=== PATIENT | male | born 1940 | race Caucasian/White ===

== ENCOUNTER 2016-10-16 09:52 | Emergency (ER) | payer MEDICARE, BC ==
[2016-10-16] MEDS ORDERED: Ketorolac INJ* 60 MG/2 ML VIAL IM ONE (10:57)
[2016-10-16] MEDS ORDERED: HYDROcodone/ACETAMIN 5-325 MG* 1 TAB PO ONE (10:57)
--- NOTE | 2016-10-16 11:45 | RAD ---
INDICATION: Low back pain. COMPARISON: There are no prior studies available for comparison. TECHNIQUE: 3 views of the lumbar spine were obtained including lateral, AP and a coned-down lateral view of the lumbar sacral junction. FINDINGS: The vertebra are in normal alignment. No fracture is seen. There is mild to moderate disc space narrowing and mild endplate spurring at all lumbar levels consistent with mild to moderate diffuse degenerative disc disease. IMPRESSION: MILD TO MODERATE DIFFUSE DEGENERATIVE DISC DISEASE.
--- NOTE | 2016-10-16 11:46 | RAD ---
INDICATION: Back pain. COMPARISON: There are no prior studies available for comparison. TECHNIQUE: AP and lateral films of the dorsal spine were obtained. FINDINGS: There is a minimal scoliosis convex toward the right side. The vertebra are otherwise in normal alignment. No fracture is seen. There is mild to moderate diffuse degenerative disc disease throughout the mid and lower dorsal spine. IMPRESSION: MILD TO MODERATE DEGENERATIVE DISC DISEASE.
[2016-10-16 12:36] VITALS: BP 132/75
--- NOTE | 2016-10-16 12:38 | ED ---
Myron Redd Matthew, scribed for Marco Cartwright MD on 10/16/16 at 1058 . Back Pain - HPI Summary HPI Summary: A 76 y/o male presents to the ED with intermittent left lower back pain since . The patient slipped off of the first step of stool and fell into his refrigerator. The pain is rated 5/10 in severity and hasn't improved since the incident. Nothing has improved or worsened the pain. He's used Tylenol at home for pain. - History of Current Complaint Chief Complaint: EDBackInjuryPain Stated Complaint: FALL / LT SIDE /BACK PAIN Time Seen by Provider: 10/16/16 10:42 Hx Obtained From: Patient Onset/Duration: Sudden Onset, Lasting Days, Still Present Onset/Duration: Started Days Ago, Traumatic, Still Present Timing: Constant Back Pain Location: Is Discrete @ - left lower back Severity Initially: Moderate Severity Currently: Moderate Pain Intensity: 5 Pain Scale Used: 0-10 Numeric Aggravating Symptom(s): Nothing Alleviating Symptom(s): Nothing Associated Signs And Symptoms: Positive: Negative - Allergies/Home Medications Allergies/Adverse Reactions: Allergies Allergy/AdvReac Type Severity Reaction Status Date / Time No Known Allergies Allergy Verified 04/22/13 08:01 PMH/Surg Hx/FS Hx/Imm Hx Endocrine/Hematology History: Denies: Hx Diabetes, Hx Thyroid Disease Cardiovascular History: Denies: Hx Hypertension Respiratory History: Denies: Hx Asthma, Hx Chronic Obstructive Pulmonary Disease (COPD) GI History: Denies: Hx Ulcer Infectious Disease History: No Infectious Disease History: Denies: Hx Hepatitis, Hx Human Immunodeficiency Virus (HIV), Traveled Outside the [place] in Last 30 Days - Family History Known Family History: Positive: Unknown - PT is a poor historian - Social History Alcohol Use: None Substance Use Type: Reports: None Smoking Status (MU): Never Smoked Tobacco Review of Systems Constitutional: Negative Eyes: Negative ENT: Negative Cardiovascular: Negative Respiratory: Negative Negative: Shortness Of Breath Gastrointestinal: Negative Negative: Abdominal Pain, Vomiting, Diarrhea, Nausea Genitourinary: Negative Positive: Myalgia - left lower back pain Skin: Negative Neurological: Negative Psychological: Normal All Other Systems Reviewed And Are Negative: Yes Physical Exam - Summary Physical Exam Summary: VITAL SIGNS: Reviewed. GENERAL: Patient is a well developed and nourished male who is lying comfortable in the stretcher. Patient is not in any acute respiratory distress. HEAD AND FACE: No signs of trauma. EYES: PERRLA, EOMI x 2. EARS: Hearing grossly intact. Ear canals and tympanic membranes are WNL MOUTH: Oropharynx within normal limits. NECK: Supple, trachea is midline, no adenopathy, no JVD. CHEST: Symmetric, no tenderness at palpation LUNGS: Clear to auscultation bilaterally. No wheezing or crackles. CVS: RRR, S1 and S2 present, no murmurs or gallops appreciated. ABDOMEN: Soft, NT. No signs of distention. Positive BS. No rebound no guarding, and no masses palpated. EXTREMITIES: FROM in all major joints, no edema, no cyanosis or clubbing. NEURO: Alert and oriented x 3. No acute neurological deficits. Speech is normal and follows commands. SKIN: Dry and warm Back: There is no ecchymosis, no deformity, positive paraspinal muscle tenderness in the left lumbar spine. No vertebral tenderness. No saddle anesthesia. Refuses rectal exam. Straight test is negative. Triage Information Reviewed: Yes Vital Signs On Initial Exam: Initial Vitals Temp Pulse Resp BP Pulse Ox 97.2 F 77 18 142/87 100 10/16/16 09:54 10/16/16 09:54 10/16/16 09:54 10/16/16 09:54 10/16/16 09:54 Vital Signs Reviewed: Yes - [place] Coma Scale Coma Scale Total: 15 Diagnostics - Vital Signs Vital Signs Temp Pulse Resp BP Pulse Ox 10/16/16 09:54 97.2 F 77 18 142/87 100 - Laboratory Lab Statement: Any lab studies that have been ordered have been reviewed, and results considered in the medical decision making process. - Radiology L-Spine Xray Interpretation: No Acute Changes - IMPRESSION: MILD TO MODERATE DIFFUSE DEGENERATIVE DISC DISEASE. Radiology Interpretation Completed By: Radiologist T-Spine Xray Interpretation: No Acute Changes - IMPRESSION: MILD TO MODERATE DEGENERATIVE DISC DISEASE. Radiology Interpretation Completed By: Radiologist Back Pain Course/Dx - Course Assessment/Plan: A 76 y/o male presents to the ED with intermittent left lower back pain since 10/12/16. The patient slipped off of the first step of stool and fell into his refrigerator. The pain is rated 5/10 in severity and hasn't improved since the incident. Nothing has improved or worsened the pain. He's used Tylenol at home for pain. XR T-Spine showed mild to moderate degenerative disc disease and XR of L-Spine also showed mild to moderate DDD. In the ED course, the patient was given Toradol on [place] and the patients symptoms improved. Hes ambulatory with minimal discomfort. I believe that the symptoms are secondary to the trauma of the lumbar spine. Therefor the patient will be discharged home with a prescription for naproxen and [place]. The patient was instructed to return to the ED if symptoms worsen. I did not suspect AAA since the pain started after the trauma and on physical exam there was no pulsating mass in the abdomen. - Diagnoses Differential Diagnosis/HQI/PQRI: Positive: Fracture, Herniated Disc, Osteoporosis, Strain, Sprain Provider Diagnoses: Lower back pain, Lumbar back sprain Discharge - Discharge Plan Condition: Stable Disposition: HOME Prescriptions: HYDROcodone/ACETAMIN 5-325 MG* [[place] 5-325 TAB*] 1 tab PO Q8H PRN #10 tab MDD max 4 tabs / day PRN Reason: Pain Naproxen TAB* [Naprosyn TAB*] 375 mg PO BID PRN #20 tab PRN Reason: Pain Patient Education Materials: Hydrocodone/Acetaminophen (By mouth), Naproxen ( By mouth), Low Back Strain (ED), Back Pain (ED) Referrals: Marco Eden MD [Primary Care Provider] - 4 Days Additional Instructions: Please follow-up with your primary care physician in 4 days. Return to the ED if you symptoms worsen. The documentation as recorded by the Myron boone Matthew accurately reflects the service I personally performed and the decisions made by me, Marco Cartwright MD.
== END 2016-10-16 12:34 | disposition home or self-care (01) ==
LOC: ED 09:52
DX: M54.5 Low back pain (principal); S33.5XXA Sprain of ligaments of lumbar spine, initial encounter; W19.XXXA Unspecified fall, initial encounter; Y93.9 Activity, unspecified; Y92.9 Unspecified place or not applicable; Y99.8 Other external cause status
CPT/HCPCS: 72070; 72100; 96372; 99282; J1885

== ENCOUNTER 2019-02-18 08:09 | Emergency (ER) | payer MEDICARE, OTHER ==
--- OUTSIDE RECORDS SUMMARY | 2019-02-18 08:16 | XMS REPORT | Continuity of Care Document ---
:1940 External Reference #:[id number] Author Name Isabelle Moreira Care Team Providers Name Role Phone Marco Eden III, MD Primary Care Physician Unavailable Payers Date Identification Numbers Payment Provider Subscriber Policy Number: [id number] Medicare Marcello V Eliza PayID: [id number] [address] [place] [address] Policy Number: [id number] Facets Marcello V Eliza PayID: [id number] [address] [address] [place] [address] Expires: 2018 Policy Number: [id number] Medicare Marcello V Eliza PayID: [id number] [address] [place] [address] Problems Active Problems Provider Date Gout Myriam Lopez, N.P. Onset: 11/02/2013 Benign localized hyperplasia of prostate Myriam Lopez N.P. Onset: 2013 Benign prostatic hypertrophy without outflow Marco Eden M.D. Onset: obstruction Pure hypercholesterolemia Myriam Lopez, N.P. 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 Tablets Naproxen 1 tablet with 60tabs Israel Reddy MD 02/23/2017 500mg Tablets food by mouth twice a day as needed Simvastatin Take One Tablet 90tabs E78.0 Marco Eden, 12/08/2013 20mg By Mouth Every M.D. Tablets Evening Tamsulosin HCL 1 by mouth every 90caps Unknown 0.4mg day Capsules Finasteride 1 by mouth every 30tabs Unknown 5mg Tablets day History Medications Colcrys 2 by mouth with 6tabs M10.9 Marco Eden, 01/04/2017 - 0.6mg Tablets acute gout M.D. 02/02/2019 flare, then 1 tab 1 hour later Naproxen 1 tab by mouth 50tabs Shayne Reyez, 03/09/2014 - 250mg q12 hours prn 10/21/2016 Tablets for gout Naproxen 1 tab by mouth 50tabs Unknown - 250mg q12 hours prn 11/10/2013 Tablets Antibiotic For Hand Unknown - Laceration 11/19/2013 Naproxen Marco Cartwright MD - 375mg 09/17/2017 Tablets Hydrocodone-Acetamin Marco Cartwright MD - ophen 09/17/2017 5-325mg Tablets Immunizations CPT Code Status Date Vaccine Lot # [id number] Given 05/21/2018 Fluzone High Dose 05789 Given 06/04/2017 Influenza Virus Vaccine, Quadrivalent, Split, Preservative Free [id number] Given 06/12/2016 Fluzone High Dose 96664 Given 06/05/2015 Fluzone High Dose 76920 Given 12/10/2014 Pneumococcal Conjugate Vaccine 13 Valent For [id number] Intramuscular Use 01083 Given 05/21/2014 Fluzone High Dose 94886 Given 12/08/2013 Zoster (Zostavax) [id number] 17200 Given 10/14/2013 Tdap - Tetanus/Diptheria/Acellular Pertussis 89262 Given 04/21/2013 Flu Vaccine Split Virus Preservative Free For Indiv [id number] Older 46214 Given 06/16/2009 Pneumonia Vaccine Vital Signs Date Vital Result Comment 02/02/2019 9:20am Height 67.50 inches 5'7.50" Weight 179.00 lb Heart Rate 79 /min BP Systolic Sitting 157 mmHg BP Diastolic Sitting 101 mmHg BMI (Body Mass Index) 27.6 kg/m2 08/01/2018 8:51am Height 67.50 inches 5'7.50" Weight 186.00 lb BP Systolic 140 mmHg BP Diastolic 80 mmHg Respiratory Rate 16 /min Body Temperature 95.2 F Pain Level 9 BMI (Body Mass Index) 28.7 kg/m2 12/22/2017 9:28am Height 67.3 inches 5'7.30" Weight 186.00 lb Heart Rate 74 /min BP Systolic Sitting 148 mmHg BP Diastolic Sitting 90 mmHg O2 % BldC Oximetry 97 % BMI (Body Mass Index) 28.9 kg/m2 09/20/2017 11:24am Weight 189.00 lb Heart Rate 93 /min BP Systolic Sitting 135 mmHg BP Diastolic Sitting 95 mmHg Body Temperature 98.5 F O2 % BldC Oximetry 98 % 01/04/2017 10:20am Weight 191.00 lb Heart Rate 72 /min BP Systolic Sitting 128 mmHg BP Diastolic Sitting 84 mmHg Respiratory Rate 14 /min O2 % BldC Oximetry 96 % 12/17/2016 11:17am Height 69 inches 5'9" Weight 188.12 lb Heart Rate 72 /min BP Systolic 140 mmHg BP Diastolic 90 mmHg Body Temperature 96.8 F O2 % BldC Oximetry 98 % BMI (Body Mass Index) 27.8 kg/m2 10/21/2016 1:35pm Weight 196.25 lb Heart Rate 73 /min BP Systolic Sitting 128 mmHg BP Diastolic Sitting 72 mmHg Body Temperature 96.9 F O2 % BldC Oximetry 98 % 12/17/2015 10:46am Height 67.25 inches 5'7.25" Weight 194.00 lb Heart Rate 81 /min BP Systolic Sitting 129 mmHg BP Diastolic Sitting 88 mmHg Body Temperature 96.6 F BMI (Body Mass Index) 30.2 kg/m2 02/07/2015 1:36pm Weight 192.00 lb Heart Rate 74 /min BP Systolic Sitting 124 mmHg BP Diastolic Sitting 82 mmHg O2 % BldC Oximetry 96 % 01/02/2015 2:49pm Weight 198.50 lb Heart Rate 72 /min BP Systolic Sitting 148 mmHg 142/100 repeat BP Diastolic Sitting 106 mmHg 142/100 repeat Body Temperature 97.0 F O2 % BldC Oximetry 99 % 12/10/2014 9:44am Height 67.75 inches 5'7.75" Weight 199.25 lb Heart Rate 76 /min BP Systolic Sitting 156 mmHg BP Diastolic Sitting 96 mmHg Body Temperature 97.2 F O2 % BldC Oximetry 99 % BMI (Body Mass Index) 30.5 kg/m2 03/09/2014 9:34am Weight 200.25 lb Heart Rate 74 /min BP Systolic Sitting 134 mmHg BP Diastolic Sitting 82 mmHg Body Temperature 96.5 F 12/08/2013 10:02am Height 67.75 inches 5'7.75" Weight 199.50 lb Heart Rate 68 /min BP Systolic Sitting 138 mmHg BP Diastolic Sitting 92 mmHg BMI (Body Mass Index) 30.6 kg/m2 11/20/2013 11:05am Height 69 inches 5'9" Weight 199.00 lb Heart Rate 84 /min BP Systolic 133 mmHg BP Diastolic 87 mmHg BMI (Body Mass Index) 29.4 kg/m2 11/10/2013 10:12am Height 69 inches 5'9" Weight 199.00 lb Heart Rate 77 /min BP Systolic 138 mmHg BP Diastolic 87 mmHg Body Temperature 97.6 F BMI (Body Mass Index) 29.4 kg/m2 11/02/2013 1:10pm Height 68 inches 5'8" Weight 202.75 lb Heart Rate 84 /min BP Systolic Sitting 138 mmHg BP Diastolic Sitting 84 mmHg Body Temperature 97.9 F BMI (Body Mass Index) 30.8 kg/m2 Results Test Date Facility Test Result H/L Range Note Lipid Profile 01/24/2019 [facility] Triglycerides 90 mg/dL 1 (Trig/Chol/HDL) [address] [place] [address] [phone] Cholesterol 185 mg/dL 2 HDL Cholesterol 84.4 mg/dL 3 LDL Cholesterol 83 mg/dL 4 Comp Metabolic Panel 01/24/2019 [facility] Sodium 141 mmol/L N 135-145 [address] [place] [address] [phone] Potassium 4.2 mmol/L N 3.5-5.0 Chloride 106 mmol/L N 101-111 Co2 Carbon Dioxide 27 mmol/L N 22-32 Anion Gap 8 mmol/L N 2-11 Glucose 83 mg/dL N 70-100 Blood Urea Nitrogen 21 mg/dL N 6-24 Creatinine 1.25 mg/dL High 0.67-1.17 BUN/Creatinine Ratio 16.8 N 8-20 Calcium 9.5 mg/dL N 8.6-10.3 Total Protein 6.5 g/dL N 6.4-8.9 Albumin 4.0 g/dL N 3.2-5.2 Globulin 2.5 g/dL N 2-4 Albumin/Globulin Ratio 1.6 N 1-3 Total Bilirubin 0.60 mg/dL N 0.2-1.0 Alkaline Phosphatase 70 U/L N 34-104 Alt 11 U/L N 7-52 Ast 16 U/L N 13-39 Egfr Non- 56.2 >60 Egfr 67.9 >60 5 Laboratory test 12/14/2018 [facility] PSA Diagnostic 2.721 ng/ mL 0-4.0 6 finding [address] [place] [address] [phone] Laboratory test 06/22/2018 [facility] PSA Screening 1.719 ng/mL 0-4.0 7 finding [address] [place] [address] [phone] Lipid Profile 12/15/2017 [facility] Triglycerides 79 mg/dL 8 (Trig/Chol/HDL) [address] [place] [address] [phone] Cholesterol 166 mg/dL 9 HDL Cholesterol 72.5 mg/dL 10 LDL Cholesterol 78 mg/dL 11 CBC Auto Diff 12/15/2017 [facility] White Blood 5.1 10^3/uL N 3.5-10.[address] [place] [address] [phone] Red Blood Count 5.08 10^6/uL N 4.0-5.4 Hemoglobin 14.1 g/dL N 14.0-18.0 Hematocrit 42 % N 42-52 Mean Corpuscular Volume 82 fL N 80-94 Mean Corpuscular Hemoglobin 28 pg N 27-31 Mean Corpuscular HGB Conc 34 g/dL N 31-36 Red Cell Distribution Width 14 % N 10.5-15 Platelet Count 241 10^3/uL N 150-450 Mean Platelet Volume 8.2 um3 N 7.4-10.4 Abs Neutrophils 2.6 10^3/uL N 1.5-7.7 Abs Lymphocytes 1.7 10^3/uL N 1.0-4.8 Abs Monocytes 0.4 10^3/uL N 0-0.8 Abs Eosinophils 0.3 10^3/uL N 0-0.6 Abs Basophils 0.1 10^3/uL N 0-0.2 Abs Nucleated RBC 0 10^3/uL Granulocyte % 51.5 % N 38-83 Lymphocyte % 33.2 % N 25-47 Monocyte % 7.8 % High 0-7 Eosinophil % 6.2 % High 0-6 Basophil % 1.3 % N 0-2 Nucleated Red Blood Cells % 0.2 Laboratory test finding 12/15/2017 [facility] Alt 13 U/L N 7- 52 12 [address] [place] [address] [phone] Ast (Sgot) 18 U/L N 13-39 13 Basic Metabolic Panel 12/15/2017 [facility] Sodium 142 mmol/L N 139-145 [address] [place] [address] [phone] Potassium 4.4 mmol/L N 3.5-5.0 Chloride 111 mmol/L N 101-111 Co2 Carbon Dioxide 24 mmol/L N 22-32 Anion Gap 7 mmol/L N 2-11 Glucose 85 mg/dL N 70-100 Blood Urea Nitrogen 22 mg/dL N 6-24 Creatinine 1.14 mg/dL N 0.67-1.17 BUN/Creatinine Ratio 19.3 N 8-20 Calcium 9.0 mg/dL N 8.6-10.3 Egfr Non- 62.6 >60 Egfr 80.5 >60 14 Laboratory test 06/30/2017 [facility] PSA Screening 1.298 ng/mL 0-4.0 15 finding [address] [place] [address] [phone] Laboratory test 01/06/2017 [facility] PSA Screening 2.955 ng/mL N 0-4.0 16 finding [address] [place] [address] [phone] Basic Metabolic 01/04/2017 [facility] Sodium 140 mmol/L N 133- 145 Panel [address] [place] [address] [phone] Potassium 4.4 mmol/L N 3.5-5.0 Chloride 107 mmol/L N 101-111 Co2 Carbon Dioxide 26 mmol/L N 22-32 Anion Gap 7 mmol/L N 2-11 Glucose 82 mg/dL N 70-100 Blood Urea Nitrogen 16 mg/dL N 6-24 Creatinine 0.98 mg/dL N 0.67-1.17 BUN/Creatinine Ratio 16.3 N 8-20 Calcium 9.0 mg/dL N 8.6-10.3 Egfr Non- 74.8 N >60 Egfr 96.2 N >60 17 Laboratory test 01/04/2017 [facility] Uric Acid 6.1 mg/dL N 4.4-7.6 finding [address] [place] [address] [phone] Lipid Profile 12/02/2016 [facility] Triglycerides 60 mg/dL N 18 (Trig/Chol/HDL) [address] [place] [address] [phone] Cholesterol 157 mg/dL N 19 HDL Cholesterol 70.3 mg/dL N 20 LDL Cholesterol 75 mg/dL N 21 CBC Auto Diff 12/02/2016 [facility] White Blood 5.4 10^3/uL N 3.5-10.8 [address] [facility] [place] [address] [phone] Red Blood Count 4.96 10^6/uL N 4.0-5.4 Hemoglobin 14.2 g/dL N 14.0-18.0 Hematocrit 42 % N 42-52 Mean Corpuscular Volume 84 fL N 80-94 Mean Corpuscular Hemoglobin 29 pg N 27-31 Mean Corpuscular HGB Conc 34 g/dL N 31-36 Red Cell Distribution Width 13 % N 10.5-15 Platelet Count 226 10^3/uL N 150-450 Mean Platelet Volume 8 um3 N 7.4-10.4 Abs Neutrophils 2.8 10^3/uL N 1.5-7.7 Abs Lymphocytes 1.7 10^3/uL N 1.0-4.8 Abs Monocytes 0.4 10^3/uL N 0-0.8 Abs Eosinophils 0.4 10^3/uL N 0-0.6 Abs Basophils 0.1 10^3/uL N 0-0.2 Abs Nucleated RBC 0 10^3/uL N Granulocyte % 51.3 % N 38-83 Lymphocyte % 32.4 % N 25-47 Monocyte % 7.1 % N 1-9 Eosinophil % 7.7 % High 0-6 Basophil % 1.5 % N 0-2 Nucleated Red Blood Cells % 0 N Laboratory test finding 12/02/2016 [facility] Alt 10 U/L N 7- 52 22 [address] [place] [address] [phone] Ast (Sgot) 16 U/L N 13-39 23 Basic Metabolic Panel 12/02/2016 [facility] Sodium 139 mmol/L N 133-145 [address] [place] [address] [phone] Potassium 4.2 mmol/L N 3.5-5.0 Chloride 107 mmol/L N 101-111 Co2 Carbon Dioxide 27 mmol/L N 22-32 Anion Gap 5 mmol/L N 2-11 Glucose 92 mg/dL N 70-100 Blood Urea Nitrogen 25 mg/dL High 6-24 Creatinine 1.25 mg/dL High 0.67-1.17 BUN/Creatinine Ratio 20.0 N 8-20 Calcium 9.1 mg/dL N 8.6-10.3 Egfr Non- 56.5 N >60 Egfr 72.6 N >60 24 Lipid Profile 12/06/2015 [facility] Triglycerides 74 mg/dL N 25, 26 (Trig/Chol/HDL) [address] [place] [address] [phone] Cholesterol 166 mg/dL N 27 HDL Cholesterol 67.4 mg/dL N 28 LDL Cholesterol 84 mg/dL N 29 Comp Metabolic Panel 12/06/2015 [facility] Sodium 138 mmol/L N 133-145 [address] [place] [address] [phone] Potassium 4.1 mmol/L N 3.5-5.0 Chloride 108 mmol/L N 101-111 Co2 Carbon Dioxide 25 mmol/L N 22-32 Anion Gap 5 mmol/L N 2-11 Glucose 92 mg/dL N 70-100 Blood Urea Nitrogen 17 mg/dL N 6-24 Creatinine 1.09 mg/dL N 0.67-1.17 BUN/Creatinine Ratio 15.6 N 8-20 Calcium 8.9 mg/dL N 8.6-10.3 Total Protein 6.3 g/dL Low 6.4-8.9 Albumin 4.0 g/dL N 3.2-5.2 Globulin 2.3 g/dL N 2-4 Albumin/Globulin Ratio 1.7 N 1-3 Total Bilirubin 0.50 mg/dL N 0.2-1.0 Alkaline Phosphatase 67 U/L N 34-104 Alt 9 U/L N 7-52 Ast 16 U/L N 13-39 Egfr Non- 66.3 N >60 Egfr 85.3 N >60 30 Laboratory test 06/20/2015 [facility] PSA Diagnostic 1.309 N 0 -4.0 [address] ng/[place] [address] [phone] Comp Metabolic 12/03/2014 [facility] Sodium 133 mmol/L N 133- 145 [address] [place] [address] [phone] Potassium 4.2 mmol/L N 3.5-5.0 Chloride 105 mmol/L N 101-111 Co2 Carbon Dioxide 25 mmol/L N 22-32 Anion Gap 3 mmol/L N 2-11 Glucose 84 mg/dL N 70-100 Blood Urea Nitrogen 15 mg/dL N 6-24 Creatinine 1.13 mg/dL N 0.67-1.17 BUN/Creatinine Ratio 13.3 N 8-20 Calcium 9.0 mg/dL N 8.6-10.3 Total Protein 6.3 g/dL Low 6.4-8.9 Albumin 4.0 g/dL N 3.2-5.2 Globulin 2.3 g/dL N 2-4 Albumin/Globulin Ratio 1.7 N 1-3 Total Bilirubin 0.50 mg/dL N 0.2-1.0 Alkaline Phosphatase 65 U/L N 34-104 Alt 14 U/L N 7-52 Ast 18 U/L N 13-39 Egfr Non- 63.8 N >60 Egfr 82.0 N >60 33 Lipid Profile 12/03/2014 [facility] Triglycerides 63 mg/dL N 34 (Trig/Chol/HDL) [address] [place] [address] [phone] Cholesterol 165 mg/dL N 35 HDL Cholesterol 70.2 mg/dL N 36 LDL Cholesterol 82 mg/dL N 37 Laboratory test 06/07/2014 [facility] PSA Diagnostic 2.279 N 0 -4.0 [address] ng/[place] [address] [phone] Basic Metabolic 04/02/2014 [facility] Sodium 141 mmol/L N 133- [address] [place] [address] [phone] Potassium 4.3 mmol/L N 3.7-5.6 Chloride 108 mmol/L N 101-111 Co2 Carbon Dioxide 27 mmol/L N 22-32 Anion Gap 6 mmol/L N 2-11 Glucose 89 mg/dL N 70-100 Blood Urea Nitrogen 18 mg/dL N 6-24 Creatinine 1.19 mg/dL High 0.67-1.17 BUN/Creatinine Ratio 15.1 N 8-20 Calcium 9.5 mg/dL N 8.6-10.3 Egfr Non- 60.3 N >60 Egfr 77.5 N >60 39 Laboratory test 03/01/2014 [facility] Creatine Kinase 45 U/L N 10-[address] [place] [address] [phone] Comp Metabolic 03/01/2014 [facility] Sodium 141 N 133-[address] mmol/[place] [address] [phone] Potassium 4.5 mmol/L N 3.7-5.6 Chloride 108 mmol/L N 101-111 Co2 Carbon Dioxide 28 mmol/L N 22-32 Anion Gap 5 mmol/L N 2-11 Glucose 84 mg/dL N 70-100 Blood Urea Nitrogen 23 mg/dL N 6-24 Creatinine 1.23 mg/dL High 0.67-1.17 BUN/Creatinine Ratio 18.7 N 8-20 Calcium 9.1 mg/dL N 8.6-10.3 Total Protein 6.5 g/dL N 6.4-8.9 Albumin 3.9 g/dL N 3.2-5.2 Globulin 2.6 g/dL N 2-4 Albumin/Globulin Ratio 1.5 N 1-3 Total Bilirubin 0.40 mg/dL N 0.2-1.0 Alkaline Phosphatase 66 U/L N 34-104 Alt 14 U/L N 7-52 Ast 18 U/L N 13-39 Egfr Non- 58.0 N >60 Egfr 74.6 N >60 40 Lipid Profile 03/01/2014 [facility] Triglycerides 72 mg/dL N 41 (Trig/Chol/HDL) [address] [place] [address] [phone] Cholesterol 171 mg/dL N 42 HDL Cholesterol 63.6 mg/dL N 43 LDL Cholesterol 93 mg/dL N 44 CBC Auto Diff 02/02/2014 White Blood Count 5.1 10^3/uL N 4.8-10.8 Red Blood Count 5.16 10^6/uL N 4.0-5.4 Hemoglobin 14.7 g/dL N 14.0-18.0 Hematocrit 42 % N 42-52 Mean Corpuscular Volume 82 fL N 80-94 Mean Corpuscular Hemoglobin 29 pg N 27-31 Mean Corpuscular HGB Conc 35 g/dL N 31-36 Red Cell Distribution Width 17 % High 10.5-15 Platelet Count 232 10^3/uL N 150-450 Mean Platelet Volume 7 um3 Low 7.4-10.4 Abs Neutrophils 3.1 10^3/uL N 1.5-7.7 Abs Lymphocytes 1.4 10^3/uL N 1.0-4.8 Abs Monocytes 0.3 10^3/uL N 0-0.8 Abs Eosinophils 0.2 10^3/uL N 0-0.6 Abs Basophils 0.1 10^3/uL N 0-0.2 Abs Nucleated RBC 0 10^3/uL N Granulocyte % 59.8 % N 38-83 Lymphocyte % 27.7 % N 25-47 Monocyte % 6.0 % N 1-9 Eosinophil % 4.7 % N 0-6 Basophil % 1.8 % N 0-2 Nucleated Red Blood Cells % 0.1 N Surgical Pathology 01/02/2014 [facility] S RUN DATE: [address] <[place] [address] NOTE> [phone] Basic Metabolic 12/06/2013 [facility] Sodium 136 mmol/L N 133- [address] [place] [address] [phone] Potassium 4.5 mmol/L N 3.7-5.6 Chloride 104 mmol/L N 101-111 Co2 Carbon Dioxide 26 mmol/L N 22-32 Anion Gap 6 mmol/L N 2-11 Glucose 84 mg/dL N 70-100 Blood Urea Nitrogen 23 mg/dL N 6-24 Creatinine 1.08 mg/dL N 0.67-1.17 BUN/Creatinine Ratio 21.3 High 8-20 Calcium 9.3 mg/dL N 8.6-10.3 Egfr Non- 67.4 N >60 Egfr 86.7 N >60 46 Laboratory test 12/06/2013 [facility] PSA Diagnostic 1.342 N 0 -4.0 47 finding [address] [facility] ng/[place] [address] [phone] Laboratory test 11/06/2013 [facility] Uric Acid 7.8 mg/dL High 4.4-7.6 finding [address] [place] [address] [phone] Glucose 89 mg/dL N 70-100 Lipid Profile 11/06/2013 [facility] Triglycerides 91 mg/dL N 48 (Trig/Chol/HDL) [address] [place] [address] [phone] Cholesterol 225 mg/dL N 49 HDL Cholesterol 62.7 mg/dL N 50 LDL Cholesterol 144 mg/dL N 51 CBC With 11/06/2013 [facility] White Blood 5.8 10^3/uL N 4.8- 10.8 Manual Diff [address] [facility] [place] [address] [phone] Red Blood Count 4.89 10^6/uL N 4.0-5.4 Hemoglobin 14.2 g/dL N 14.0-18.0 Hematocrit 42 % N 42-52 Mean Corpuscular Volume 85 fL N 80-94 Mean Corpuscular Hemoglobin 29 pg N 27-31 Mean Corpuscular HGB Conc 34 g/dL N 31-36 Red Cell Distribution Width 13 % N 10.5-15 Platelet Count 295 10^3/uL N 150-450 Mean Platelet Volume 8 um3 N 7.4-10.4 Abs Neutrophils 3.4 10^3/uL N 1.5-7.7 Abs Lymphocytes 1.6 10^3/uL N 1.0-4.8 Abs Monocytes 0.4 10^3/uL N 0-0.8 Abs Eosinophils 0.3 10^3/uL N 0-0.6 Abs Basophils 0.1 10^3/uL N 0-0.2 Abs Nucleated RBC 0.01 10^3/uL N Neutrophil % 59 % N 38-83 Lymphocytes % 32 % N 25-47 Monocytes % 3 % N 0-13 Eosinophils % 6 % N 0-6 RBC Morphology Normal N Normal 1 Desirable: <150 Borderline High: 150-199 High: 200-499 Very High: >500 2 Desirable: <200 Borderline High: 200-239 High: >239 3 Low: <40 Desirable: 40-60 High: >60 4 Desirable: <100 Near Optimal: 100-129 Borderline High: 130-159 High: 160-189 Very High: >189 5 Because ethnic data is not always readily available, this report includes an eGFR for both -Americans and non- Americans. The National Kidney Disease Education Program (NKDEP) does not endorse the use of the MDRD equation for patients that are not between the ages of 18 and 70, are , have extremes of body size, muscle mass, or nutritional status, or are non- or non-. According to the National Kidney Foundation, irrespective of diagnosis, the stage of the disease is based on the level of kidney function: Stage Description GFR(mL/min/1.73 m(2)) 1 Kidney damage with normal or decreased GFR 90 2 Kidney damage with mild decrease in GFR 60-89 3 Moderate decrease in GFR 30-59 4 Severe decrease in GFR 15-29 5 Kidney failure <15 (or dialysis) 6 Serum levels of PSA measured using the [employer] DXI Hybritech immunoassay should not be interpreted as absolute evidence of the presence or absence of disease. The PSA value should be used in conjunction with other pertinent clinical diagnostic procedures. The values obtained with different assay methods or kits cannot be used interchangeably. 7 Serum levels of PSA measured using the [employer] DXI Hybritech immunoassay should not be interpreted as absolute evidence of the presence or absence of disease. The PSA value should be used in conjunction with other pertinent clinical diagnostic procedures. The values obtained with different assay methods or kits cannot be used interchangeably. 8 Desirable: <150 Borderline High: 150-199 High: 200-499 Very High: >500 9 Desirable: <200 Borderline High: 200-239 High: >239 10 Low: <40 Desirable: 40-60 High: >60 11 Desirable: <100 Near Optimal: 100-129 Borderline High: 130-159 High: 160-189 Very High: >189 12 FASTING 13 FASTING 14 Because ethnic data is not always readily available, this report includes an eGFR for both -Americans and non- Americans. The National Kidney Disease Education Program (NKDEP) does not endorse the use of the MDRD equation for patients that are not between the ages of 18 and 70, are , have extremes of body size, muscle mass, or nutritional status, or are non- or non-. According to the National Kidney Foundation, irrespective of diagnosis, the stage of the disease is based on the level of kidney function: Stage Description GFR(mL/min/1.73 m(2)) 1 Kidney damage with normal or decreased GFR 90 2 Kidney damage with mild decrease in GFR 60-89 3 Moderate decrease in GFR 30-59 4 Severe decrease in GFR 15-29 5 Kidney failure <15 (or dialysis) 15 Serum levels of PSA measured using the [employer] DXI Hybritech immunoassay should not be interpreted as absolute evidence of the presence or absence of disease. The PSA value should be used in conjunction with other pertinent clinical diagnostic procedures. The values obtained with different assay methods or kits cannot be used interchangeably. 16 Serum levels of PSA measured using the [employer] DXI Hybritech immunoassay should not be interpreted as absolute evidence of the presence or absence of disease. The PSA value should be used in conjunction with other pertinent clinical diagnostic procedures. The values obtained with different assay methods or kits cannot be used interchangeably. 17 Because ethnic data is not always readily available, this report includes an eGFR for both -Americans and non- Americans. The National Kidney Disease Education Program (NKDEP) does not endorse the use of the MDRD equation for patients that are not between the ages of 18 and 70, are , have extremes of body size, muscle mass, or nutritional status, or are non- or non-. According to the National Kidney Foundation, irrespective of diagnosis, the stage of the disease is based on the level of kidney function: Stage Description GFR(mL/min/1.73 m(2)) 1 Kidney damage with normal or decreased GFR 90 2 Kidney damage with mild decrease in GFR 60-89 3 Moderate decrease in GFR 30-59 4 Severe decrease in GFR 15-29 5 Kidney failure <15 (or dialysis) 18 Desirable <150 Borderline high 150-199 High 200-499 Very High >500 19 Desirable <200 Borderline high 200-239 High >239 20 Low <40 Desirable: 40-60 High: >60 21 Desirable: <100 mg/dL Near Optimal: 100-129 mg/dL Borderline High: 130-159 mg/dL High: 160-189 mg/dL Very High: >189 mg/dL 22 FASTING 23 FASTING 24 Because ethnic data is not always readily available, this report includes an eGFR for both -Americans and non- Americans. The National Kidney Disease Education Program (NKDEP) does not endorse the use of the MDRD equation for patients that are not between the ages of 18 and 70, are , have extremes of body size, muscle mass, or nutritional status, or are non- or non-. According to the National Kidney Foundation, irrespective of diagnosis, the stage of the disease is based on the level of kidney function: Stage Description GFR(mL/min/1.73 m(2)) 1 Kidney damage with normal or decreased GFR 90 2 Kidney damage with mild decrease in GFR 60-89 3 Moderate decrease in GFR 30-59 4 Severe decrease in GFR 15-29 5 Kidney failure <15 (or dialysis) 25 PT IS FASTING 26 Desirable <150 Borderline high 150-199 High 200-499 Very High >500 27 Desirable <200 Borderline high 200-239 High >239 28 Low <40 Desirable: 40-60 High: >60 29 Desirable: <100 mg/dL Near Optimal: 100-129 mg/dL Borderline High: 130-159 mg/dL High: 160-189 mg/dL Very High: >189 mg/dL 30 Because ethnic data is not always readily available, this report includes an eGFR for both -Americans and non- Americans. The National Kidney Disease Education Program (NKDEP) does not endorse the use of the MDRD equation for patients that are not between the ages of 18 and 70, are , have extremes of body size, muscle mass, or nutritional status, or are non- or non-. According to the National Kidney Foundation, irrespective of diagnosis, the stage of the disease is based on the level of kidney function: Stage Description GFR(mL/min/1.73 m(2)) 1 Kidney damage with normal or decreased GFR 90 2 Kidney damage with mild decrease in GFR 60-89 3 Moderate decrease in GFR 30-59 4 Severe decrease in GFR 15-29 5 Kidney failure <15 (or dialysis) 31 Serum levels of PSA measured using the [employer] DXI Hybritech immunoassay should not be interpreted as absolute evidence of the presence or absence of disease. The PSA value should be used in conjunction with other pertinent clinical diagnostic procedures. The values obtained with different assay methods or kits cannot be used interchangeably. 32 FASTING 10 HOUR 33 Because ethnic data is not always readily available, this report includes an eGFR for both -Americans and non- Americans. The National Kidney Disease Education Program (NKDEP) does not endorse the use of the MDRD equation for patients that are not between the ages of 18 and 70, are , have extremes of body size, muscle mass, or nutritional status, or are non- or non-. According to the National Kidney Foundation, irrespective of diagnosis, the stage of the disease is based on the level of kidney function: Stage Description GFR(mL/min/1.73 m(2)) 1 Kidney damage with normal or decreased GFR 90 2 Kidney damage with mild decrease in GFR 60-89 3 Moderate decrease in GFR 30-59 4 Severe decrease in GFR 15-29 5 Kidney failure <15 (or dialysis) 34 Desirable <150 Borderline high 150-199 High 200-499 Very High >500 35 Desirable <200 Borderline high 200-239 High >239 36 Low <40 Desirable: 40-60 High: >60 37 Desirable: <100 mg/dL Near Optimal: 100-129 mg/dL Borderline High: 130-159 mg/dL High: 160-189 mg/dL Very High: >189 mg/dL 38 Serum levels of PSA measured using the [employer] DXI Hybritech immunoassay should not be interpreted as absolute evidence of the presence or absence of disease. The PSA value should be used in conjunction with other pertinent clinical diagnostic procedures. The values obtained with different assay methods or kits cannot be used interchangeably. 39 Because ethnic data is not always readily available, this report includes an eGFR for both -Americans and non- Americans. The National Kidney Disease Education Program (NKDEP) does not endorse the use of the MDRD equation for patients that are not between the ages of 18 and 70, are , have extremes of body size, muscle mass, or nutritional status, or are non- or non-. According to the National Kidney Foundation, irrespective of diagnosis, the stage of the disease is based on the level of kidney function: Stage Description GFR(mL/min/1.73 m(2)) 1 Kidney damage with normal or decreased GFR 90 2 Kidney damage with mild decrease in GFR 60-89 3 Moderate decrease in GFR 30-59 4 Severe decrease in GFR 15-29 5 Kidney failure <15 (or dialysis) 40 Because ethnic data is not always readily available, this report includes an eGFR for both -Americans and non- Americans. The National Kidney Disease Education Program (NKDEP) does not endorse the use of the MDRD equation for patients that are not between the ages of 18 and 70, are , have extremes of body size, muscle mass, or nutritional status, or are non- or non-. According to the National Kidney Foundation, irrespective of diagnosis, the stage of the disease is based on the level of kidney function: Stage Description GFR(mL/min/1.73 m(2)) 1 Kidney damage with normal or decreased GFR 90 2 Kidney damage with mild decrease in GFR 60-89 3 Moderate decrease in GFR 30-59 4 Severe decrease in GFR 15-29 5 Kidney failure <15 (or dialysis) 41 Desirable <150 Borderline high 150-199 High 200-499 Very High >500 42 Desirable <200 Borderline high 200-239 High >239 43 Low <40 Desirable: 40-60 High: >60 44 Desirable <100 Near Optimal 100-129 Borderline high 130-159 High 160-189 Very High >189 45 RUN DATE: 01/04/14 [facility] LAB LIVE PAGE 1 RUN TIME: [address] [place], [place] [address] Specimen Inquiry Name: ELIZAKERENMARCELLO V : [address]: Slick Ramirez MD Acct: [id number] Unit: [id number] AGE: 73 Location: [facility] Re01/02/14 SEX: M Status: REG REF SPEC: [id number] ASHLIE: 01/02/14- SUBM DR: Slick Ramirez MD REQ: [id number] RECD: 01/02/14 STATUS: ADONAY LAZO DR: Shayne Reyez MD _ ORDERED: LEVEL IV FINAL DIAGNOSIS Colon, 40 cm., biopsy: A. Tubular adenoma. B. No high grade dysplasia or malignancy. CLINICAL HISTORY Screening colonoscopy POST-OPERATIVE DIAGNOSIS Screening colonoscopy to cecum, snare at 40 cm. GROSS DESCRIPTION The specimen is received in formalin labeled Marcello Miller, Colon Polyp at 40 cm. and consists of two, marion, irregular to polypoid, soft tissue fragments measuring 0.3 x 0.2 x 0.1 cm. and 0.5 x 0.4 x 0.3 cm. Submitted entirely, one cassette. Signed (signature on file) Renato Banegas MD 1320 END OF REPORT * ML=Testing performed at Main Lab DEPARTMENT OF PATHOLOGY, [address] [place] [address] Renato Banegas M.D. Director [facility] # [id number] 46 Because ethnic data is not always readily available, this report includes an eGFR for both -Americans and non- Americans. The National Kidney Disease Education Program (NKDEP) does not endorse the use of the MDRD equation for patients that are not between the ages of 18 and 70, are , have extremes of body size, muscle mass, or nutritional status, or are non- or non-. According to the National Kidney Foundation, irrespective of diagnosis, the stage of the disease is based on the level of kidney function: Stage Description GFR(mL/min/1.73 m(2)) 1 Kidney damage with normal or decreased GFR 90 2 Kidney damage with mild decrease in GFR 60-89 3 Moderate decrease in GFR 30-59 4 Severe decrease in GFR 15-29 5 Kidney failure <15 (or dialysis) 47 Serum levels of PSA measured using the [employer] DXI Hybritech immunoassay should not be interpreted as absolute evidence of the presence or absence of disease. The PSA value should be used in conjunction with other pertinent clinical diagnostic procedures. The values obtained with different assay methods or kits cannot be used interchangeably. 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 knee Office 01/04/2017 Arvind [facility] Jordan Keyes M10.9 Gout, Visit 10:20a Hayden Eden M.D. unspecified Office 10/21/2016 Arvind [facility] Internal Marco Keyes M54.9 Dorsalgia, Visit 2:00p Hayden Eden M.D. unspecified E78.00 Pure hypercholesterolemia, unspecified Office Visit 02/07/2015 1:40p [facility] Internal Marco Keyes 796.2 Blood Pressure Maia Eden M.D. Reading Elevated Ccmob W/O Hypertension Office Visit 01/02/2015 2:20p [facility] Jordan Keyes 796.2 Blood Pressure Maia Eden M.D. Reading Elevated Ccmob W/O Hypertension Office Visit 03/09/2014 9:40a [facility] Internal Shayne Ross 585.1 Chronic Kidney Maia Reyez, Disease Stage I Ccmob Calvin,FACP 272.0 Hypercholesterolemia Pure Office Visit 12/08/2013 10:00a [facility] Internal Myriam Lopez, V70.0 Examination Medicine - N.P. General Medical Ccmob Routine AT [facility] 272.0 Hypercholesterolemia Pure 274.9 Gout Unspec 600.20 Benign Localized Hyperplasia Prostate W/O Urinary Obstruct V04.89 Need For Prophylactic Vaccination & Inoculation Other Virus Office Visit 11/20/2013 11:00a Orthopedic Fouzia Dick, 883.0 [facility](S) W/O C.M.A. Complication Office Visit 11/10/2013 10:00a Orthopedic Fouzia Dick, 883.0 [facility] W/O C.M.A. Complication Office Visit 11/02/2013 1:00p [facility] Internal Myriam Lopez, 274.9 Gout Unspec Medicine - Ccmob N.P. V77.1 Screening Diabetes Mellitus V77.91 Screening For Lipoid Disorders V76.51 Special Screening For Malignant Neoplasms Colon 600.20 Benign Localized Hyperplasia Prostate W/O Urinary Obstruct Plan of Treatment 02/02/2019 - Marco Eden M.D.Z00.00 Encounter for general adult medical examination without abnoE78.00 Pure hypercholesterolemia, dahyimgyqzeM99.9 Gout , jxwjqysomjmJ60.0 Benign prostatic hyperplasia without lower urinary tract symL98.9 Disorder of the skin and subcutaneous tissue, gnxpikqheklZ89.93 Unspecified hearing loss, ixflnfcdhN41.1 Tinea unguiumNew Medication: Terbinafine HCL 250 mg - 1 po dailyNew Labs:Liver Function Panel, Ordered: 02/02
[2019-02-18 08:31] VITALS: BP 145/94
--- NOTE | 2019-02-18 09:15 | UC ---
Knee Pain HPI - HPI Summary HPI Summary: 2 DAYS OF PROGRESSIVELY WORSENING RIGHT KNEE PAIN AND SWELLING. PATIENT DENIES ANY ACUTE INJURY/TRAUMA HOWEVER HE HAS BEEN DOING A LOT OF CHORES AROUND THE HOUSE INCLUDING LAYING BLACKTOP SO HE HAS BEEN SPENDING A LOT OF TIME ON HIS KNEES. STATES HE WAS DIAGNOSED CLINICALLY WITH GOUT IN HIS RIGHT KNEE IN JULY 2018. HE RESPONDED WELL TO NAPROXEN TWICE DAILY. HAS NOT HAD HIS URIC ACID EVALUATED RECENTLY THAT HE IS AWARE OF. 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 - Onset/Duration: Gradual Onset, Lasting Days, Still Present Severity Initially: Moderate Severity Currently: Moderate Pain Intensity: 4 Pain Scale Used: 0-10 Numeric Character: Sharp Aggravating Factor(s): Weight Bearing Alleviating Factor(s): Rest Associated Signs And Symptoms: Positive: Swelling Able to Bear Weight: Yes - WITH PAIN - Allergies/Home Medications Allergies/Adverse Reactions: Allergies Allergy/AdvReac Type Severity Reaction Status Date / Time No Known Allergies Allergy Verified 02/18/19 08:32 Home Medications: Home Medications Acetaminophen TAB* [Tylenol TAB*] 650 mg PO Q4H PRN 02/18/19 [History Confirmed 02/18/19] Terbinafine HCl 250 mg PO DAILY 02/18/19 [History Confirmed 02/18/19] PMH/Surg Hx/FS Hx/Imm Hx - Additional Past Medical History Additional PMH: GOUT - Surgical History Surgical History: None - Family History Known Family History: Positive: Unknown - PT is a poor historian - Social History Alcohol Use: None Substance Use Type: None Smoking Status (MU): Never Smoked Tobacco Review of Systems All Other Systems Reviewed And Are Negative: Yes Constitutional: Positive: Negative Skin: Positive: Negative Respiratory: Positive: Negative Cardiovascular: Positive: Negative Gastrointestinal: Positive: Negative Musculoskeletal: Positive: Arthralgia, Decreased ROM, Edema Physical Exam Triage Information Reviewed: Yes Appearance: Well-Appearing, No Pain Distress, Well-Nourished Vital Signs: Initial Vital Signs Temp 98.8 F 02/18/19 08:27 Pulse 90 02/18/19 08:27 Resp 16 02/18/19 08:27 BP 145/94 02/18/19 08:27 Pulse Ox 98 02/18/19 08:27 Vital Signs Reviewed: Yes Eyes: Positive: Conjunctiva Clear ENT: Positive: Hearing grossly normal Neck: Positive: Supple Respiratory: Positive: No respiratory distress, No accessory muscle use Cardiovascular: Positive: Pulses Normal Abdomen Description: Positive: Soft Musculoskeletal: Positive: ROM Limited @ - RIGHT KNEE, Edema @ - RIGHT KNEE, Other: - RIGHT KNEE WARM TO TOUCH. NO JOINT LINE TENDERNESS OR TENDERNESS OVER ANY BONY PROMINENCES. MCL AND LCL INTACT TO STRESS TESTING. NEG LACHMANS. NEG DRAWERS SIGNS. NEG MCMURRAYS. NO TENDERNESS OVER PATELLAR LIGAMENT OR QUADRICEPS TENDON. DECREASED ROM (FLEXION). Neurological: Positive: Alert Psychological: Positive: Normal Response To Family, Age Appropriate Behavior Skin: Negative: Rashes Diagnostics - Radiology RIGHT KNEE XRAYS Radiology Interpretation Completed By: Radiologist Summary of Radiographic Findings: There is been interval increase in the now moderate size suprapatellar joint. effusion without acute bony abnormality. Knee Pain Course/Dx - Course Course Of Treatment: PATIENT WITH 2 DAYS OF WORSENING RIGHT KNEE PAIN AND SWELLING. STATES HE WAS DIAGNOSED CLINICALLY WITH HAVING GOUT IN THAT KNEE IN JULY 2018. LAST URIC ACID ON OUR SYSTEM WAS 6.1 IN 2017. STATES HE HAS HAD GOUTY ATTACKS IN HIS GREAT TOE IN THE PAST. IS NOT ON ANY DAILY PROPHYLACTIC MEDICATION FOR GOUT. X -RAY TODAY SHOWS AN EFFUSION AND SOME CALCIFICATIONS. HE HAS RESPONDED WELL THE PAST TO NAPROXEN TWICE DAILY AND STATES HE HAS THIS MEDICATION AT HOME ALREADY. HAVE ADVISED HIM TO TAKE THIS MEDICINE FOR THE NEXT 5-7 DAYS. STAY WELL HYDRATED. IF HIS SYMPTOMS DO NOT IMPROVE HE WILL FOLLOW-UP WITH DR. ARRIETA FROM ORTHOPEDICS. I ENCOURAGED HIM TO FOLLOW UP WITH HIS PCP IN SEVERAL WEEKS AFTER HIS SYMPTOMS HAVE RESOLVED FOR A RECHECK OF HIS URIC ACID. - Differential Dx/Diagnosis Provider Diagnosis: Pain and swelling of right knee Discharge - Sign-Out/Discharge Documenting (check all that apply): Patient Departure All imaging exams completed and their final reports reviewed: Yes - Discharge Plan Condition: Stable Disposition: HOME Patient Education Materials: Low Purine Diet (ED), Gout (ED), Swollen Knee Joint (ED) Referrals: Israel Reddy MD [Medical Doctor] - If Needed Marco Eden MD [Primary Care Provider] - 2 Weeks Additional Instructions: YOUR RIGHT KNEE PAIN MAY OR MAY NOT BE DUE TO A GOUTY ATTACK. YOU COULD BE EXPERIENCING A FLARE OF WEAR AND TEAR ARTHRITIS. X-RAY TODAY SHOWS CALCIFICATIONS AND A MODERATE SIZE JOINT EFFUSION. NO ACUTE BONY ABNORMALITY. TAKE YOUR NAPROXEN TWICE DAILY FOR 5-7 DAYS. I RECOMMEND YOU FOLLOW-UP WITH YOUR PCP AFTER YOUR SYMPTOMS HAVE RESOLVED FOR A URIC ACID CHECK. THIS WILL GIVE YOU AN INDICATION OF WHETHER OR NOT YOU COULD HAVE GOUT. FOLLOW-UP WITH DR. ARRIETA WITH ORTHOPEDICS IF YOUR SYMPTOMS DO NOT IMPROVE WITH NAPROXEN. AVOID EXCESSIVE USE OF YOUR KNEE WHILE YOU ARE SYMPTOMATIC. - Billing Disposition and Condition Condition: STABLE Disposition: Home
== END 2019-02-18 09:50 | disposition home or self-care (01) ==
LOC: UCEAST 08:09
DX: M25.561 Pain in right knee (principal); M25.461 Effusion, right knee
CPT/HCPCS: 99211; G0463